=== PATIENT | female | born 1995 | race Caucasian/White ===

== ENCOUNTER 2017-05-11 23:46 | Emergency (ER) | payer BC ==
[~2017-05-11] VITALS: Ht 165.1 cm; Wt 81.8 kg
[2017-05-11 23:55] VITALS: BP 110/70; PULSE 99; RESP 14; TEMP 98.8; O2SAT 97
[2017-05-12] MEDS ORDERED: SODIUM CHLOR 0.9% 1000 ML INJ 1,000 ML IV ONE (00:49)
--- NOTE | 2017-05-12 00:54 | PD ---
HPI Chief Complaint: GI Complaint Time Seen by Provider: 00:49 Travel History International Travel<30 days: No Contact w/Intl Traveler<30days: No Traveled to known affect area: No History of Present Illness HPI 21-year-old female presents to the emergency department for complaint of nausea vomiting diarrhea since 4 AM on 05/11/17. Patient denies dietary indiscretion, well water ingestion, or foreign travel. Patient denies any known exposure to persons with similar symptoms or stomach virus/costochondritis. No hematemesis coffee-ground emesis biliary emesis melena or hematochezia. Discomfort is 2/10 in intensity. No dysuria frequency or urgency. LMP started today. Patient denies . Patient has had previous tonsillectomy and upper endoscopy in the sixth grade. Patient denies other surgeries. Nonsmoker. Patient is able to identify exacerbating or alleviating factors. Patient does report that she has vomited stomach contents and vomited soup that she attempted to eat this evening. PFSH Past Medical History Narrative Medical Anxiety tonsillectomy adenoidectomy upper endoscopy; occasional tobacco use occasional alcohol use; nursing notes reviewed Anxiety: Yes Tetanus Vaccination: < 5 Years Influenza Vaccination: No ?: Not LMP: 05/11/17 : 0 Past Surgical History Tonsillectomy: Yes Other Surgery: Yes (UPPER ENDOSCOPY: 6TH GRADE "NEGATIVE") Social History Alcohol Use: Yes ("RARELY") Tobacco Use: Yes (SOCIALLY) Substance Use: No Allergies-Medications (Allergen,Severity, Reaction): Coded Allergies: No Known Allergies (Unverified , 05/11/17) Reported Meds & Prescriptions Reported Meds & Active Scripts Active No Active Prescriptions or Reported Medications Review of Systems Except as stated in HPI: all other systems reviewed are Neg General / Constitutional: Positive: Chills, No: Fever HENT: No: Congestion Cardiovascular: No: Chest Pain or Discomfort Respiratory: No: Shortness of Breath Gastrointestinal: Positive: Nausea, Vomiting, Diarrhea, Abdominal Pain Genitourinary: No: Urgency, Frequency, Dysuria Musculoskeletal: No: Myalgias Skin: No Rash Neurologic: No: Weakness Psychiatric: No: Anxiety Hematologic/Lymphatic: No: Lymph Node Enlargement Physical Exam Narrative GENERAL: Well-developed well-nourished female in no acute distress no respiratory distress SKIN: Warm and dry. HEAD: Normocephalic. EYES: No scleral icterus. No injection or drainage. NECK: Supple, trachea midline. No JVD or lymphadenopathy. CARDIOVASCULAR: Regular rate and rhythm without murmurs, gallops, or rubs. RESPIRATORY: Breath sounds equal bilaterally. No accessory muscle use. GASTROINTESTINAL: Abdomen soft, non-tender, nondistended. MUSCULOSKELETAL: No cyanosis, or edema. BACK: Nontender without obvious deformity. No CVA tenderness. Data Data Last Documented VS Vital Signs Date Time Temp Pulse Resp B/P Pulse Ox O2 Delivery O2 Flow Rate FiO2 05/12/17 01:55 75 16 98/55 97 Room Air 05/11/17 23:55 98.8 Orders Complete Blood Count With Diff (05/12/17 00:49) Comprehensive Metabolic Panel (05/12/17 00:49) Urinalysis - C+S If Indicated (05/12/17 00:49) Lipase (05/12/17 00:49) Iv Access Insert/Monitor (05/12/17 00:49) Ecg Monitoring (05/12/17 00:49) Oximetry (05/12/17 00:49) Ondansetron Inj (Zofran Inj) (05/12/17 01:00) Sodium Chlor 0.9% 1000 Ml Inj (Ns 1000 M (05/12/17 00:49) Sodium Chloride 0.9% Flush (Ns Flush) (05/12/17 01:00) Ed Urine Pregnancytest Poc (05/12/17 00:49) Potassium Chloride (Kcl) (05/12/17 02:15) Sodium Chlorid 0.9% 500 Ml Inj (Ns 500 M (05/12/17 02:15) Labs Laboratory Tests Test 05/12/17 05/12/17 00:40 01:40 White Blood Count 4.9 TH/MM3 Red Blood Count 4.64 MIL/MM3 Hemoglobin 13.3 GM/DL Hematocrit 39.1 % Mean Corpuscular Volume 84.4 FL Mean Corpuscular Hemoglobin 28.6 PG Mean Corpuscular Hemoglobin 33.9 % Concent Red Cell Distribution Width 11.7 % Platelet Count 206 TH/MM3 Mean Platelet Volume 7.8 FL Neutrophils (%) (Auto) 79.9 % Lymphocytes (%) (Auto) 13.6 % Monocytes (%) (Auto) 6.0 % Eosinophils (%) (Auto) 0.3 % Basophils (%) (Auto) 0.2 % Neutrophils # (Auto) 3.9 TH/MM3 Lymphocytes # (Auto) 0.7 TH/MM3 Monocytes # (Auto) 0.3 TH/MM3 Eosinophils # (Auto) 0.0 TH/MM3 Basophils # (Auto) 0.0 TH/MM3 CBC Comment DIFF FINAL Differential Comment Sodium Level 139 MEQ/L Potassium Level 3.1 MEQ/L Chloride Level 104 MEQ/L Carbon Dioxide Level 27.9 MEQ/L Anion Gap 7 MEQ/L Blood Urea Nitrogen 8 MG/DL Creatinine 0.61 MG/DL Estimat Glomerular Filtration 125 ML/MIN Rate Random Glucose 90 MG/DL Calcium Level 8.8 MG/DL Total Bilirubin 0.7 MG/DL Aspartate Amino Transf 18 U/L (AST/SGOT) Alanine Aminotransferase 20 U/L (ALT/SGPT) Alkaline Phosphatase 74 U/L Total Protein 6.8 GM/DL Albumin 3.2 GM/DL Lipase 128 U/L Urine Color YELLOW Urine Turbidity CLEAR Urine pH 5.5 Urine Specific [place] 1.015 Urine Protein NEG mg/dL Urine Glucose (UA) NEG mg/dL Urine Ketones NEG mg/dL Urine Occult Blood TRACE Urine Nitrite NEG Urine Bilirubin NEG Urine Leukocyte Esterase NEG Urine RBC 0-2 /hpf Urine WBC 0-2 /hpf Urine Squamous Epithelial 0-5 /hpf Cells Urine Bacteria NONE /hpf Microscopic Urinalysis Comment CULT NOT INDICATED MDM Medical Decision Making Medical Screen Exam Complete: Yes Emergency Medical Condition: Yes Medical Record Reviewed: Yes Differential Diagnosis Vomiting/diarrhea, gastroenteritis, food borne illness, viral syndrome, dehydration, electronic disturbance, , UTI Narrative Course Well-developed well-nourished female in no acute distress no respiratory distress was soft nontender abdomen; mild abnormality of vital signs with heart rate upper limit of normal at 99 beats per minute; IV access obtained specimens collected and sent for resulting patient administered 1 L normal saline bolus along with Zofran 4 mg IV; specimen collected for CBC metabolic panel urinalysis ordered of care hCG and lipase. Patient given oral replacement of potassium and additional IV fluids as well as Toradol 30 mg IV for mild headache Patient is stable for outpatient management and follow-up with primary care provider as needed Diagnosis Primary Impression: Gastroenteritis Referrals: Primary Care Physician call for appointment Patient Instructions: General Instructions Additional Instructions: Follow clear liquid diet for next 12-24 hours advance as tolerated bland/Randa diet then regular diet as tolerated Increase fluid hydration Take medication as prescribed as needed for nausea and/or vomiting Take acetaminophen/Tylenol every 4 hours as needed for fever 100.4F or greater May take ibuprofen/Advil/Motrin every 6-8 hours as needed for fever 100.4F or greater or for pain associated inflammation Return to the emergency for for any concerns or change in condition Med/Other Pt SpecificInfo: Prescription(s) given Scripts Promethazine (Phenergan)25 Mg [id number] Mg PO Q6H PRN (NAUSEA OR VOMITING) #10 TAB Ref 0 Prov:Una lAexander MD 05/12/17 Una Alexander MD May 12, 2017 00:54
[2017-05-12] MEDS ORDERED: ONDANSETRON HCL 4 MG/2 ML VIAL IVP ONE (01:00)
[2017-05-12] MEDS ORDERED: SODIUM CHLORIDE 0.9% FLUSH 10 ML FLUSH IVF PRN (01:00)
[2017-05-12 01:08] LABS: AUTOMATED NEUTROPHIL # 3.9 TH/MM3 (1.8-7.7); BASOPHIL % 0.2 % (0.0-2.0); EOSINOPHIL % 0.3 % (0.0-4.0); HEMATOCRIT 39.1 % (35.0-46.0); HEMO FLAGS DIFF FINAL; LYMPH % 13.6 % (9.0-44.0); LYMPHOCYTE # 0.7 TH/MM3 (1.0-4.8); MEAN CELL VOLUME 84.4 FL (80.0-100.0); MEAN CORPUSCULAR HEMOGLOBIN 28.6 PG (27.0-34.0); MEAN CORPUSCULAR HGB CONC 33.9 % (32.0-36.0); NEUT % 79.9 % (16.0-70.0); PLATELET COUNT 206 TH/MM3 (150-450); RED BLOOD COUNT 4.64 MIL/MM3 (4.00-5.30); RED CELL DISTRIBUTION WIDTH 11.7 % (11.6-17.2); WHITE BLOOD COUNT 4.9 TH/MM3 (4.0-11.0)
[2017-05-12 01:18] LABS: CHLORIDE 104 MEQ/L (98-107); POTASSIUM 3.1 MEQ/L (3.5-5.1); SODIUM (NA) 139 MEQ/L (136-145)
[2017-05-12 01:22] LABS: ANION GAP 7 MEQ/L (5-15); BICARBONATE 27.9 MEQ/L (21.0-32.0); BLOOD UREA NITROGEN 8 MG/DL (7-18)
[2017-05-12 01:25] LABS: ALT (GPT) 20 U/L (9-42); AST (GOT) 18 U/L (16-38); GLOMERULAR FILTRATION RATE 125 ML/MIN (>89)
[2017-05-12 01:27] LABS: TOTAL BILIRUBIN ADULT 0.7 MG/DL (0.2-1.0)
[2017-05-12 01:28] LABS: ALKALINE PHOSPHATASE 74 U/L (45-117)
[2017-05-12 01:55] VITALS: BP 98/55; PULSE 75; RESP 16; O2SAT 97
[2017-05-12 01:56] LABS: BLOOD, URINE TRACE (NEG); GLUCOSE,URINE NEG (NEG); KETONE, URINE NEG (NEG); NITRITE,URINE NEG (NEG); PH, URINE 5.5 (5.0-8.5)
[2017-05-12 02:04] LABS: COMMENT (UR) CULT NOT INDICATED; CULTURE IF INDICATED CULT NOT INDICATED; RBC, URINE 0-2 /hpf (0-3); SQUAMOUS EPITHELIAL CELL URINE 0-5 /hpf (0-5); URINE COLOR YELLOW (YELLW/STRAW); WBC, URINE 0-2 /hpf (0-5)
[2017-05-12] MEDS ORDERED: SODIUM CHLORID 0.9% 500 ML INJ 500 ML IV ONE (02:15)
[2017-05-12] MEDS ORDERED: POTASSIUM CHLORIDE 20 MEQ CONTROLLED RELEASE TAB PO ONE (02:15)
[2017-05-12] MEDS ORDERED: PROM25TA10 PO (02:33)
[2017-05-12] MEDS ORDERED: KETOROLAC TROMETHAMINE 30 MG/ML (IVP) VIAL IV PUSH ONE (02:45)
[2017-05-12 02:56] VITALS: BP 104/60
== END 2017-05-12 02:58 | disposition home or self-care (01) ==
LOC: PHED 23:46
DX: K52.9 Noninfective gastroenteritis and colitis, unspecified (principal); R51 Headache; Z72.0 Tobacco use; Z86.59 Personal history of other mental and behavioral disorders
CPT/HCPCS: 80053; 81001; 83690; 84703; 85025; 96361; 96374; 96375; 99284; J1885; J2405; J7030; J7040